=== PATIENT | female | born 2005 | race Caucasian/White ===

== ENCOUNTER 2024-05-12 19:50 | Outpatient (REF) | payer OTHER, SELFPAY ==
--- NOTE | ~2024-05-12 | MR_ITS ---
CLINICAL HISTORY: STRAIN MUSCLE FASCIA TENDON RT THIGH MR right thigh without gadolinium Comparison: None Findings: Increased T2 signal within the proximal biceps femoris and semitendinous muscles along the myotendinous junction. Small subcentimeter hemorrhages are noted within both proximal muscle bellies. The tendon insertion is intact. No fluid collection. The remaining muscles are intact. No osseous abnormality. IMPRESSION: Moderate myotendinous injury in the biceps femoris in semitendinous muscles. This document has been electronically signed by: Jacobo Chatterjee MD on 05/12/2024 20:59:04
== END 2024-05-12 19:51 | disposition home or self-care (01) ==
LOC: HO.MRI 19:50
PROVIDERS: Visit Provider Family Medicine
DX: S76.311A Strain of muscle, fascia and tendon of the posterior muscle group at thigh level, right thigh, initial encounter (principal)
CPT/HCPCS: 73718

== ENCOUNTER → 2024-05-12 19:58 | Outpatient (BNV) | payer OTHER, SELFPAY | PROVIDERS: Visit Provider Student in an Organized Health Care Education/Training Program | DX: S46.211A Strain of muscle, fascia and tendon of other parts of biceps, right arm, initial encounter (principal) | CPT/HCPCS: 73718 ==